=== PATIENT | male | born 1985 | race African-American/Black ===

== ENCOUNTER 2016-10-13 20:28 | Inpatient (IN) | payer MEDICAID ==
[~2016-10-13] VITALS: Ht 188 cm; Wt 101.9 kg
[~2016-10-13 20:28] MED LIST: TNFMISC
[2016-10-13] MEDS ORDERED: OLANZapine 5 MG RAPDIS TABLET PO PRN (20:45)
[2016-10-13] MEDS ORDERED: LORazepam 2 MG/ML VIAL IM ONE (20:45)
[2016-10-13] MEDS ORDERED: DiphenhydrAMINE HCL 50 MG/ML VIAL IM ONE (20:45)
[2016-10-13] MEDS ORDERED: HALOPERIDOL LACTATE 5 MG/ML VIAL IM ONE (20:45)
[2016-10-13] MEDS ORDERED: ZOLPIDEM TARTRATE 10 MG TABLET PO PRN (20:45)
[2016-10-13 20:58] VITALS: BP 151/90
[2016-10-13] MEDS ORDERED: INFLUENZA VIRUS VACCINE QVS 2016-17 (3YR+)/PF 60 MCG/0.5 ML SYRINGE IM ONE (21:15)
[2016-10-13] MEDS ORDERED: -PHARMACY VACCINE NOTE- MISC ONE ×2 (21:15)
[2016-10-13 21:45] VITALS: BP 131/66
[2016-10-13 22:44] VITALS: BP 131/66
[2016-10-14 07:24] VITALS: BP 135/62
[2016-10-14 08:23] VITALS: BP 149/76
[2016-10-14 08:59] LABS: BASOPHILS # (AUTO) 0.04 K/uL (0.00-0.20); BASOPHILS % (AUTO) 0.5 % (0.0-2.0); EOSINOPHILS # (AUTO) 0.32 K/uL (0.00-0.70); EOSINOPHILS % (AUTO) 4.24 % (1.0-6.0); HEMATOCRIT 39.4 % (41-53); HEMOGLOBIN 12.8 g/dL (13.5-17.5); LYMPHOCYTES # (AUTO) 1.8 K/uL (1.0-4.8); LYMPHOCYTES % (AUTO) 23.7 % (22.0-44.0); MEAN CORPUSCULAR HGB CONC 32.5 G/dL (31.0-37.0); MEAN CORPUSCULAR VOLUME 83 fL (80-100); MONOCYTES # (AUTO) 0.5 K/uL (0.1-1.0); NEUTROPHILS # (AUTO) 4.9 K/uL (1.8-7.7); NEUTROPHILS % (AUTO) 64.5 % (40.0-70.0); PLATELET COUNT (AUTO) 238 K/uL (150-450); RED BLOOD CELL COUNT(AUTO) 4.75 MIL/uL (4.50-5.90); RED CELL DISTRIBUTION WIDTH 15.1 % (11.5-14.5); WHITE BLOOD COUNT (AUTO) 7.5 K/uL (4.5-11.0)
[2016-10-14 09:06] LABS: HEMOGLOBIN A1C 5.9 % (4.5-6.2)
[2016-10-14 09:30] LABS: APPEARANCE,URINE CLEAR (CLEAR); GLUCOSE, URINE (UA) NEGATIVE (NEGATIVE); KETONES,URINE NEGATIVE (NEGATIVE); LEUKOCYTE ESTERASE ,URINE NEGATIVE (NEGATIVE); OCCULT BLOOD,URINE NEGATIVE (NEGATIVE); PROTEIN,URINE POS 1+ (NEGATIVE)
[2016-10-14 09:32] LABS: ADD UA MICROSCOPIC NO
[2016-10-14 09:40] LABS: ALANINE AMINOTRANSFERASE 23 U/L (12-78); ALBUMIN 3.3 g/dL (3.4-5.0); ANION GAP 6 mmol/L (8-16); ASPARTATE AMINOTRANSFERASE 20 U/L (15-37); BILIRUBIN,TOTAL 0.4 mg/dL (0.1-1.0); CALCIUM, TOTAL 8.9 mg/dL (8.8-10.5); CARBON DIOXIDE 33 mmol/L (22-29); CHLORIDE 107 mmol/L (98-107); CHOL/HDL RATIO 3.1 (4.2-7.3); CREATININE 0.74 mg/dL (0.60-1.30); GLOMERULAR FILTR. RATE CALC > 60 mL/min (>60); POTASSIUM 3.9 mmol/L (3.5-5.1); SODIUM SERUM 146 mmol/L (136-145); THYROID STIMULATING HORMONE 1.05 uIU/mL (0.36-3.74); TOTAL PROTEIN, SERUM 6.4 g/dL (6.4-8.2); UREA NITROGEN, BLOOD 11 mg/dL (7-18)
[2016-10-14] MEDS ORDERED: LORazepam 2 MG/ML VIAL ONE (11:26)
[2016-10-14] MEDS ORDERED: HALOPERIDOL LACTATE 5 MG/ML VIAL ONE (11:26)
[2016-10-14] MEDS ORDERED: DiphenhydrAMINE HCL 50 MG/ML VIAL ONE (11:26)
[2016-10-14] MEDS ORDERED: CloNIDine HCL 0.1 MG TABLET PO PRN (12:00)
[2016-10-14] MEDS ORDERED: PROMETHAZINE HCL 25 MG TABLET PO PRN (13:45)
[2016-10-14] MEDS ORDERED: TUBERCULIN, PURIFIED PROTEIN DERIVATIVE 5 TU/0.1 ML SYG ID ONE (13:45)
[2016-10-14] MEDS ORDERED: MAG HYDROX/AL HYDROX/SIMETH ES 30 ML SUSPENSION UDCUP PO PRN (13:45)
[2016-10-14] MEDS ORDERED: LOPERAMIDE HCL 2 MG CAPSULE PO PRN (13:45)
[2016-10-14] MEDS ORDERED: MAGNESIUM HYDROXIDE SUSPENSION 30 ML UDCUP PO PRN (13:45)
[2016-10-14] MEDS ORDERED: GuaiFENesin/D-METHORPHAN [SUGAR-FREE] 200-20MG/10 ML SYRUP UDCUP PO PRN (13:45)
[2016-10-14] MEDS ORDERED: HydrOXYzine PAMOATE 50 MG CAPSULE PO PRN (13:45)
[2016-10-14] MEDS ORDERED: ACETAMINOPHEN 325 MG TABLET PO PRN (13:45)
[2016-10-14 16:26] VITALS: BP 142/81
[2016-10-14] MEDS: THIAMINE HCL 100 MG TABLET PO SCH (17:33)
[2016-10-14] MEDS: OLANZapine 5 MG RAPDIS TABLET PO SCH (21:51)
[2016-10-15 06:53] VITALS: BP 137/82
[2016-10-15 08:43] VITALS: BP 121/81
[2016-10-15 09:11] LABS: CREATINE KINASE MB 1.5 ng/mL (0-5); CREATINE KINASE, TOTAL 289 U/L (39-308)
[2016-10-15] MEDS: FOLIC ACID 1 MG TABLET PO SCH (09:43)
[2016-10-15] MEDS: THIAMINE HCL 100 MG TABLET PO SCH ×2 (09:43→17:00)
[2016-10-15] MEDS: MULTIVITAMINS WITH MINERALS, THERAPEUTIC TABLET PO SCH (09:44)
[2016-10-15 16:00] VITALS: BP 138/88
[2016-10-15] MEDS: LORazepam 2 MG TABLET PO PRN (20:40)
[2016-10-15] MEDS: OLANZapine 5 MG RAPDIS TABLET PO SCH (20:40)
[2016-10-16 03:09] VITALS: BP 139/87
[2016-10-16] MEDS: LORazepam 2 MG TABLET PO PRN ×3 (03:12→14:19)
[2016-10-16 08:37] VITALS: BP 134/87
[2016-10-16] MEDS: FOLIC ACID 1 MG TABLET PO SCH (09:50)
[2016-10-16] MEDS: THIAMINE HCL 100 MG TABLET PO SCH ×2 (09:50→16:26)
[2016-10-16] MEDS: MULTIVITAMINS WITH MINERALS, THERAPEUTIC TABLET PO SCH (09:50)
[2016-10-16] MEDS ORDERED: OLAN5Z PO (13:26)
[2016-10-16 16:04] LABS: HEPATITIS Bs ANTIGEN SCREEN P Negative (Negative); HEPATITIS C AB SCREEN 0.1 s/co ratio (0.0-0.9)
[2016-10-17 07:06] LABS: CARCINOEMBRYONIC AG 3.7 ng/mL (0.0-4.7)
== END 2016-10-16 16:30 | disposition home or self-care (01) | DRG 750 ==
LOC: B3A 20:56 → EDSTATUS 20:59
PROVIDERS: ADMIT Psychiatry & Neurology Psychiatry; ATTEND Psychiatry & Neurology Psychiatry
DX: F20.0 Paranoid schizophrenia (principal); Z91.19 Patient's noncompliance with other medical treatment and regimen; I10 Essential (primary) hypertension; F12.90 Cannabis use, unspecified, uncomplicated; Z72.89 Other problems related to lifestyle; Z85.028 Personal history of other malignant neoplasm of stomach; D64.9 Anemia, unspecified; Z28.21 Immunization not carried out because of patient refusal
CPT/HCPCS: 80074; 80307; 82105; 82306; 82378; 82607; 82746; 83036; 84439; 84443; 86301; 86592; 87081; J1200; J1630; J2060

== ENCOUNTER 2017-11-24 09:30 | Inpatient (IN) | payer MEDICAID ==
[~2017-11-24] VITALS: Ht 185.4 cm; Wt 99.8 kg
[~2017-11-24 09:30] MED LIST changes: +OLAN5TAB40 PO; -TNFMISC
[2017-11-24 10:01] LABS: BASOPHILS % (AUTO) 0.4 % (0.0-2.0); EOSINOPHILS % (AUTO) 1.2 % (1.0-6.0); HEMATOCRIT 46.5 % (41-53); HEMOGLOBIN 15.1 g/dL (13.5-17.5); LYMPHOCYTES # (AUTO) 1.5 K/uL (1.0-4.8); MEAN CORPUSCULAR HEMOGLOBIN 26.1 pg (26.0-34.0); MEAN CORPUSCULAR HGB CONC 32.4 G/dL (31.0-37.0); MEAN CORPUSCULAR VOLUME 81 fL (80-100); MONOCYTES # (AUTO) 0.7 K/uL (0.1-1.0); MONOCYTES % (AUTO) 6.1 % (2.0-9.0); NEUTROPHILS # (AUTO) 9.4 K/uL (1.8-7.7); NEUTROPHILS % (AUTO) 79.3 % (40.0-70.0); PLATELET COUNT (AUTO) 231 K/uL (150-450); RED BLOOD CELL COUNT(AUTO) 5.77 MIL/uL (4.50-5.90); RED CELL DISTRIBUTION WIDTH 15.1 % (11.5-14.5)
[2017-11-24 10:12] LABS: ANION GAP 12 mmol/L (8-16); CALCIUM, TOTAL 9.3 mg/dL (8.8-10.5); CARBON DIOXIDE 25 mmol/L (22-29); CHLORIDE 102 mmol/L (98-107); GLOMERULAR FILTR. RATE CALC > 60 mL/min (>60); GLUCOSE,RANDOM 112 mg/dL (70-110); POTASSIUM 3.4 mmol/L (3.5-5.1); SODIUM SERUM 139 mmol/L (136-145); UREA NITROGEN, BLOOD 14 mg/dL (7-18)
[2017-11-24] MEDS ORDERED: LORazepam 2 MG/ML VIAL IM ONE (10:15)
[2017-11-24] MEDS ORDERED: HALOPERIDOL LACTATE 5 MG/ML VIAL IM ONE (10:15)
[2017-11-24] MEDS ORDERED: DiphenhydrAMINE HCL 50 MG/ML VIAL IM ONE (10:15)
[2017-11-24 10:17] LABS: ALANINE AMINOTRANSFERASE 33 U/L (12-78); ALBUMIN 4.1 g/dL (3.4-5.0); ALKALINE PHOSPHATASE 79 U/L (46-116); ASPARTATE AMINOTRANSFERASE 20 U/L (15-37); BILIRUBIN,TOTAL 1.7 mg/dL (0.1-1.0); TOTAL PROTEIN, SERUM 8.7 g/dL (6.4-8.2)
[2017-11-24] MEDS ORDERED: POTASSIUM CHLORIDE 20 MEQ ER TABLET PO ONE (10:45)
[2017-11-24] MEDS ORDERED: CloNIDine HCL 0.1 MG TABLET PO PRN (10:45)
[2017-11-25] MEDS: OLANZapine 5 MG RAPDIS TABLET PO SCH (09:45)
[2017-11-25 16:00] VITALS: BP 131/78
[2017-11-25] MEDS: HALOPERIDOL 5 MG TABLET PO PRN (16:34)
[2017-11-25] MEDS: LORazepam 2 MG TABLET PO PRN (16:34)
[2017-11-25] MEDS: OLANZapine 10 MG RAPDIS TABLET PO SCH (20:35)
[2017-11-25] MEDS: ZOLPIDEM TARTRATE 10 MG TABLET PO PRN (21:09)
[2017-11-26 07:44] LABS: ANION GAP 9 mmol/L (8-16); CALCIUM, TOTAL 9.3 mg/dL (8.8-10.5); CARBON DIOXIDE 27 mmol/L (22-29); CHLORIDE 104 mmol/L (98-107); CREATININE 0.92 mg/dL (0.60-1.30); GLOMERULAR FILTR. RATE CALC > 60 mL/min (>60); GLUCOSE,RANDOM 85 mg/dL (70-110); POTASSIUM 3.7 mmol/L (3.5-5.1); SODIUM SERUM 140 mmol/L (136-145); UREA NITROGEN, BLOOD 20 mg/dL (7-18)
[2017-11-26] MEDS: OLANZapine 5 MG RAPDIS TABLET PO SCH (08:48)
[2017-11-26] MEDS: HALOPERIDOL 5 MG TABLET PO PRN (15:46)
[2017-11-26] MEDS: LORazepam 2 MG TABLET PO PRN (15:46)
[2017-11-26 16:00] VITALS: BP 138/94
[2017-11-26] MEDS: OLANZapine 10 MG RAPDIS TABLET PO SCH (20:43)
[2017-11-27] MEDS: OLANZapine 5 MG RAPDIS TABLET PO SCH (09:00)
[2017-11-27] MEDS: OLANZapine 10 MG RAPDIS TABLET PO SCH ×2 (20:31→21:00)
[2017-11-28] MEDS ORDERED: OLANZapine 5 MG TABLET PO SCH (09:00)
[2017-11-28] MEDS: OLANZapine 10 MG RAPDIS TABLET PO SCH ×2 (09:00→20:24)
[2017-11-29] MEDS: OLANZapine 10 MG RAPDIS TABLET PO SCH ×3 (09:00→20:23)
[2017-11-30] MEDS: OLANZapine 10 MG RAPDIS TABLET PO SCH ×2 (09:00→20:31)
[2017-12-01] MEDS: OLANZapine 10 MG RAPDIS TABLET PO SCH ×2 (07:57→20:36)
[2017-12-02] MEDS ORDERED: LORazepam 2 MG/ML VIAL IM ONE (08:00)
[2017-12-02] MEDS ORDERED: DiphenhydrAMINE HCL 50 MG/ML VIAL IM ONE (08:00)
[2017-12-02] MEDS ORDERED: HALOPERIDOL LACTATE 5 MG/ML VIAL IM ONE (08:00)
[2017-12-02] MEDS: OLANZapine 10 MG RAPDIS TABLET PO SCH ×2 (09:00→20:41)
[2017-12-03] MEDS: OLANZapine 10 MG RAPDIS TABLET PO SCH ×2 (09:00→21:15)
[2017-12-03] MEDS ORDERED: HALOPERIDOL LACTATE 5 MG/ML VIAL IM PRN (13:45)
[2017-12-03] MEDS ORDERED: HEPATITIS A VACCINE, INACTI [ADULT] 1,440 UNITS/ML VIAL IM ONE (15:30)
[2017-12-04] MEDS: OLANZapine 10 MG RAPDIS TABLET PO SCH ×2 (09:00→21:33)
[2017-12-05] MEDS ORDERED: DiphenhydrAMINE HCL 50 MG/ML VIAL ONE (07:44)
[2017-12-05] MEDS ORDERED: LORazepam 2 MG/ML VIAL ONE (07:44)
[2017-12-05] MEDS ORDERED: DiphenhydrAMINE HCL 50 MG/ML VIAL IM ONE (07:45)
[2017-12-05] MEDS ORDERED: HALOPERIDOL LACTATE 5 MG/ML VIAL IM ONE (07:45)
[2017-12-05] MEDS ORDERED: LORazepam 2 MG/ML VIAL IM ONE (07:45)
[2017-12-05] MEDS: OLANZapine 10 MG RAPDIS TABLET PO SCH ×4 (07:56→21:20)
[2017-12-06] MEDS: OLANZapine 10 MG RAPDIS TABLET PO SCH ×2 (09:31→21:01)
[2017-12-07] MEDS: OLANZapine 10 MG RAPDIS TABLET PO SCH (09:54)
[2017-12-07] MEDS ORDERED: OLANZapine 7.5 MG TABLET PO ONE (21:00)
[2017-12-08] MEDS: OLANZapine 7.5 MG TABLET PO SCH ×2 (08:21→20:11)
[2017-12-09] MEDS: OLANZapine 7.5 MG TABLET PO SCH ×2 (08:49→21:22)
[2017-12-10] MEDS: OLANZapine 7.5 MG TABLET PO SCH ×2 (09:05→20:14)
[2017-12-11] MEDS: OLANZapine 7.5 MG TABLET PO SCH ×2 (09:14→20:13)
[2017-12-12] MEDS: ZOLPIDEM TARTRATE 10 MG TABLET PO PRN (00:07)
[2017-12-12] MEDS: LORazepam 2 MG TABLET PO PRN (00:08)
[2017-12-12] MEDS: HALOPERIDOL 5 MG TABLET PO PRN (01:17)
[2017-12-12] MEDS: OLANZapine 7.5 MG TABLET PO SCH ×2 (08:27→21:03)
[2017-12-13] MEDS: OLANZapine 7.5 MG TABLET PO SCH ×2 (12:16→20:46)
[2017-12-14] MEDS: OLANZapine 7.5 MG TABLET PO SCH ×2 (08:45→21:08)
[2017-12-15] MEDS: LORazepam 2 MG TABLET PO PRN ×2 (00:09→08:03)
[2017-12-15] MEDS: ZOLPIDEM TARTRATE 10 MG TABLET PO PRN (00:09)
[2017-12-15] MEDS ORDERED: DiphenhydrAMINE HCL 50 MG/ML VIAL IM ONE (07:30)
[2017-12-15] MEDS ORDERED: HALOPERIDOL LACTATE 5 MG/ML VIAL IM ONE (07:30)
[2017-12-15] MEDS ORDERED: LORazepam 2 MG/ML VIAL IM ONE (07:30)
[2017-12-15] MEDS: OLANZapine 7.5 MG TABLET PO SCH ×2 (08:03→21:24)
[2017-12-15] MEDS: HALOPERIDOL 5 MG TABLET PO PRN (08:04)
[2017-12-16] MEDS: OLANZapine 7.5 MG TABLET PO SCH ×2 (07:49→21:00)
[2017-12-16] MEDS ORDERED: DiphenhydrAMINE HCL 50 MG/ML VIAL IM ONE (17:30)
[2017-12-16] MEDS ORDERED: HALOPERIDOL LACTATE 5 MG/ML VIAL IM ONE (17:30)
[2017-12-16] MEDS ORDERED: LORazepam 2 MG/ML VIAL IM ONE (17:30)
[2017-12-16] MEDS ORDERED: LORazepam 2 MG/ML VIAL ONE (17:33)
[2017-12-16] MEDS ORDERED: DiphenhydrAMINE HCL 50 MG/ML VIAL ONE (17:34)
[2017-12-16] MEDS ORDERED: HALOPERIDOL LACTATE 5 MG/ML VIAL ONE (17:34)
[2017-12-17] MEDS: OLANZapine 7.5 MG TABLET PO SCH ×2 (09:31→22:06)
[2017-12-17] MEDS: LORazepam 2 MG TABLET PO PRN (09:32)
[2017-12-18] MEDS: OLANZapine 7.5 MG TABLET PO SCH (08:24)
[2017-12-18] MEDS: OLANZapine 5 MG RAPDIS TABLET PO SCH (23:07)
[2017-12-19] MEDS: OLANZapine 5 MG RAPDIS TABLET PO SCH ×2 (09:32→20:30)
[2017-12-19] MEDS: HALOPERIDOL LACTATE 5 MG/ML VIAL IM PRN (20:32)
[2017-12-20] MEDS: OLANZapine 5 MG RAPDIS TABLET PO SCH ×2 (07:34→21:00)
[2017-12-20] MEDS: HALOPERIDOL LACTATE 5 MG/ML VIAL IM PRN ×2 (08:01→21:13)
[2017-12-21] MEDS: OLANZapine 5 MG RAPDIS TABLET PO SCH ×2 (11:33→20:49)
[2017-12-22] MEDS: OLANZapine 5 MG RAPDIS TABLET PO SCH ×2 (08:06→20:52)
[2017-12-23] MEDS: OLANZapine 5 MG RAPDIS TABLET PO SCH ×2 (07:56→21:13)
[2017-12-24] MEDS: ZOLPIDEM TARTRATE 10 MG TABLET PO PRN (01:40)
[2017-12-24] MEDS: LORazepam 2 MG TABLET PO PRN (01:40)
[2017-12-24] MEDS: OLANZapine 5 MG RAPDIS TABLET PO SCH ×2 (11:56→21:00)
[2017-12-24] MEDS ORDERED: LORazepam 2 MG/ML VIAL IM ONE (17:30)
[2017-12-24] MEDS ORDERED: HALOPERIDOL LACTATE 5 MG/ML VIAL IM ONE (17:30)
[2017-12-24] MEDS ORDERED: DiphenhydrAMINE HCL 50 MG/ML VIAL IM ONE (17:30)
[2017-12-24] MEDS: DIVALPROEX SODIUM 500 MG DR TABLET PO SCH (21:00)
[2017-12-25] MEDS: DIVALPROEX SODIUM 500 MG DR TABLET PO SCH ×2 (08:37→20:12)
[2017-12-25] MEDS: OLANZapine 5 MG RAPDIS TABLET PO SCH ×2 (08:37→20:12)
[2017-12-26] MEDS: OLANZapine 5 MG RAPDIS TABLET PO SCH ×2 (08:28→21:00)
[2017-12-26] MEDS: DIVALPROEX SODIUM 500 MG DR TABLET PO SCH ×2 (08:28→21:00)
[2017-12-26] MEDS ORDERED: DiphenhydrAMINE HCL 50 MG/ML VIAL IM ONE (20:15)
[2017-12-26] MEDS ORDERED: HALOPERIDOL LACTATE 5 MG/ML VIAL IM ONE (20:15)
[2017-12-26] MEDS ORDERED: LORazepam 2 MG/ML VIAL IM ONE (20:15)
[2017-12-27] MEDS: DIVALPROEX SODIUM 500 MG DR TABLET PO SCH ×2 (09:00→22:54)
[2017-12-27] MEDS: OLANZapine 5 MG RAPDIS TABLET PO SCH ×2 (09:00→22:54)
[2017-12-28] MEDS: DIVALPROEX SODIUM 500 MG DR TABLET PO SCH ×2 (07:51→20:45)
[2017-12-28] MEDS: OLANZapine 5 MG RAPDIS TABLET PO SCH (07:51)
[2017-12-28] MEDS ORDERED: OLANZapine 10 MG TABLET PO SCH (21:00)
[2017-12-29] MEDS: OLANZapine 10 MG RAPDIS TABLET PO SCH ×3 (08:39→21:31)
[2017-12-29] MEDS: DIVALPROEX SODIUM 500 MG DR TABLET PO SCH ×3 (08:39→21:31)
[2017-12-29] MEDS: HALOPERIDOL LACTATE 5 MG/ML VIAL IM PRN (21:37)
[2017-12-30] MEDS: DIVALPROEX SODIUM 500 MG DR TABLET PO SCH ×2 (08:28→21:00)
[2017-12-30] MEDS: OLANZapine 10 MG RAPDIS TABLET PO SCH ×2 (08:28→21:00)
[2017-12-30] MEDS: HALOPERIDOL LACTATE 5 MG/ML VIAL IM PRN (22:08)
[2017-12-31] MEDS: DIVALPROEX SODIUM 500 MG DR TABLET PO SCH ×2 (08:10→21:03)
[2017-12-31] MEDS: OLANZapine 10 MG RAPDIS TABLET PO SCH ×2 (08:10→21:03)
[2018-01-01] MEDS: DIVALPROEX SODIUM 500 MG DR TABLET PO SCH ×2 (08:28→20:35)
[2018-01-01] MEDS: OLANZapine 10 MG RAPDIS TABLET PO SCH ×2 (08:28→20:35)
[2018-01-02] MEDS: DIVALPROEX SODIUM 500 MG DR TABLET PO SCH ×2 (08:31→21:35)
[2018-01-02] MEDS: OLANZapine 10 MG RAPDIS TABLET PO SCH ×2 (08:31→21:35)
[2018-01-03] MEDS: OLANZapine 10 MG RAPDIS TABLET PO SCH ×2 (07:52→21:36)
[2018-01-03] MEDS: DIVALPROEX SODIUM 500 MG DR TABLET PO SCH ×2 (07:52→21:35)
[2018-01-04] MEDS: OLANZapine 10 MG RAPDIS TABLET PO SCH ×2 (09:25→20:05)
[2018-01-04] MEDS: DIVALPROEX SODIUM 500 MG DR TABLET PO SCH ×2 (09:25→20:04)
[2018-01-05] MEDS: OLANZapine 10 MG RAPDIS TABLET PO SCH ×2 (08:59→21:33)
[2018-01-05] MEDS: DIVALPROEX SODIUM 500 MG DR TABLET PO SCH ×2 (08:59→21:33)
[2018-01-06] MEDS: DIVALPROEX SODIUM 500 MG DR TABLET PO SCH ×2 (08:54→21:23)
[2018-01-06] MEDS: OLANZapine 10 MG RAPDIS TABLET PO SCH ×2 (08:55→21:23)
[2018-01-07] MEDS: OLANZapine 10 MG RAPDIS TABLET PO SCH ×2 (08:06→20:39)
[2018-01-07] MEDS: DIVALPROEX SODIUM 500 MG DR TABLET PO SCH ×2 (08:06→20:39)
[2018-01-07] MEDS: HALOPERIDOL 5 MG TABLET PO PRN (21:36)
[2018-01-07] MEDS: LORazepam 2 MG TABLET PO PRN (21:36)
[2018-01-08] MEDS: DIVALPROEX SODIUM 500 MG DR TABLET PO SCH ×2 (09:49→20:36)
[2018-01-08] MEDS: OLANZapine 10 MG RAPDIS TABLET PO SCH ×2 (09:49→20:36)
[2018-01-09] MEDS: DIVALPROEX SODIUM 500 MG DR TABLET PO SCH ×2 (08:19→20:17)
[2018-01-09] MEDS: OLANZapine 10 MG RAPDIS TABLET PO SCH ×2 (08:20→20:17)
[2018-01-09] MEDS ORDERED: OLAN10TA6 PO (11:04)
[2018-01-09] MEDS ORDERED: DIVA500T35 PO (11:04)
[2018-01-10] MEDS: DIVALPROEX SODIUM 500 MG DR TABLET PO SCH (08:20)
[2018-01-10] MEDS: OLANZapine 10 MG RAPDIS TABLET PO SCH (08:20)
== END 2018-01-10 13:30 | disposition home or self-care (01) | DRG 750 ==
LOC: EMS 09:31 → 3EC 16:28
DX: F20.0 Paranoid schizophrenia (principal); Z78.1 Physical restraint status; E87.6 Hypokalemia; D64.9 Anemia, unspecified; D72.829 Elevated white blood cell count, unspecified; F12.90 Cannabis use, unspecified, uncomplicated; R03.0 Elevated blood-pressure reading, without diagnosis of hypertension; Z59.0 Homelessness; Z79.899 Other long term (current) drug therapy; Z87.891 Personal history of nicotine dependence; Z28.21 Immunization not carried out because of patient refusal
CPT/HCPCS: 90632; 96372; 99291; G0480; J1200; J1630; J2060

== ENCOUNTER 2018-08-31 14:47 | Inpatient (IN) | payer MEDICAID ==
[~2018-08-31] VITALS: Ht 185.4 cm; Wt 94.5 kg
[~2018-08-31 14:47] MED LIST changes: +DIVA-78 PO; +OLAN10TA6 PO; -OLAN5TAB40 PO
[2018-08-31 15:40] LABS: APPEARANCE,URINE CLEAR (CLEAR); BILIRUBIN,URINE NEGATIVE (NEGATIVE); GLUCOSE, URINE (UA) >=1000 mg/dL (NEGATIVE); KETONES,URINE 40 mg/dL (NEGATIVE); LEUKOCYTE ESTERASE ,URINE NEGATIVE (NEGATIVE); NITRATE,URINE NEGATIVE (NEGATIVE); OCCULT BLOOD,URINE NEGATIVE (NEGATIVE); PROTEIN,URINE NEGATIVE (NEGATIVE); UROBILINOGEN,URINE 0.2 mg/dL (<=1.0)
[2018-08-31 15:44] LABS: GLUCOSE,POINT OF CARE > 600 MG/DL (70-110)
[2018-08-31] MEDS ORDERED: INSULIN REGULAR, HUMAN 100 UNITS/ML IVP ONE ×2 (15:45→17:30)
[2018-08-31] MEDS ORDERED: SODIUM CHLORIDE 0.9% 2,000 ML IV ONE (15:45)
[2018-08-31 15:46] LABS: AMPHET/METH SCREEN,URINE NEGATIVE (NEGATIVE); BARBITURATE SCREEN, URINE NEGATIVE (NEGATIVE); BENZODIAZEPINES SCREEN,URINE NEGATIVE (NEGATIVE); CANNABINOID SCREEN,URINE NEGATIVE (NEGATIVE); COCAINE SCREEN,URINE NEGATIVE (NEGATIVE); METHADONE SCREEN, URINE NEGATIVE (NEGATIVE); OPIATE SCREEN,URINE NEGATIVE (NEGATIVE)
[2018-08-31 15:48] LABS: PHENCYCLIDINE SCREEN,URINE NEGATIVE (NEGATIVE)
[2018-08-31 15:49] LABS: BACTERIA,URINE Rare /HPF (None Seen); RBC,URINE None Seen /HPF (0-2); SQUAMOUS EPITHELIAL CELL,UR Rare /LPF (None Seen); WBC,URINE None Seen /HPF (0-5)
[2018-08-31 15:53] LABS: BASOPHILS % (AUTO) 0.6 % (0.0-2.0); EOSINOPHILS % (AUTO) 0.1 % (1.0-6.0); HEMATOCRIT 48.7 % (41-53); HEMOGLOBIN 15.8 g/dL (13.5-17.5); LYMPHOCYTES # (AUTO) 1.8 K/uL (1.0-4.8); LYMPHOCYTES % (AUTO) 11.8 % (22.0-44.0); MEAN CORPUSCULAR HEMOGLOBIN 27.6 pg (26.0-34.0); MEAN CORPUSCULAR HGB CONC 32.5 G/dL (31.0-37.0); MEAN CORPUSCULAR VOLUME 85 fL (80-100); MONOCYTES # (AUTO) 1.1 K/uL (0.1-1.0); MONOCYTES % (AUTO) 7.1 % (2.0-9.0); NEUTROPHILS # (AUTO) 12.4 K/uL (1.8-7.7); NEUTROPHILS % (AUTO) 80.4 % (40.0-70.0); PLATELET COUNT (AUTO) 388 K/uL (150-450); RED BLOOD CELL COUNT(AUTO) 5.74 MIL/uL (4.50-5.90)
[2018-08-31 16:07] LABS: HEMOGLOBIN A1C 10.6 % (4.5-6.2)
[2018-08-31 16:09] LABS: ALANINE AMINOTRANSFERASE 27 U/L (12-78); ALBUMIN 3.7 g/dL (3.4-5.0); ALKALINE PHOSPHATASE 104 U/L (46-116); ANION GAP 19 mmol/L (8-16); ASPARTATE AMINOTRANSFERASE 14 U/L (15-37); BILIRUBIN,TOTAL 0.7 mg/dL (0.1-1.0); CALCIUM, TOTAL 9.9 mg/dL (8.8-10.5); CARBON DIOXIDE 22 mmol/L (22-29); CHLORIDE 83 mmol/L (98-107); CREATININE 1.45 mg/dL (0.60-1.30); GLOMERULAR FILTR. RATE CALC > 60 mL/min (>60); POTASSIUM 5.4 mmol/L (3.5-5.1); TOTAL PROTEIN, SERUM 9.3 g/dL (6.4-8.2); UREA NITROGEN, BLOOD 31 mg/dL (7-18); VALPROIC ACID 77 mcg/mL (50-100)
[2018-08-31 16:15] LABS: SODIUM SERUM 124 mmol/L (136-145)
[2018-08-31] MEDS ORDERED: SODIUM CHLORIDE 0.9% 1,000 ML IV ONE (16:15)
[2018-08-31 16:16] LABS: GLUCOSE,RANDOM 658 mg/dL (70-110)
[2018-08-31 16:25] LABS: B-TYPE NATRIURETIC PEPTIDE < 5 pg/mL (0-100)
[2018-08-31 16:29] LABS: PLATELET MORPHOLOGY COMMENT NORMAL
[2018-08-31 16:39] LABS: ACETAMINOPHEN < 2 mcg/mL (10-30)
[2018-08-31 16:43] LABS: ABG BASE EXCESS -7.4 mmol/L (-2.0-3.0); ABG CARBOXYHEMOGLOBIN 1.2 % (0.0-1.5); ABG HCO3 19.5 mmol/L (22.0-26.0); ABG METHEMOGLOBIN 0.3 % (0.0-1.5); ABG OXYGEN CONTENT 21.1 mL/dL (15.0-23.0); ABG OXYGEN SATURATION 96.6 % (95.0-98.0); ABG OXYHEMOGLOBIN 95.2 % (94.0-100.0); ABG PCO2 32 mmHg (35-45); ABG PH 7.369 (7.350-7.450); ABG TOTAL HEMOGLOBIN 15.7 G/dL (12.0-18.0); PO2, ARTERIAL BG 91.7 mmHg (92.0-100.0); SITE, BLOOD GAS RT RADIAL; SOURCE, BLOOD GAS ARTERIAL; TEMPERATURE, FAHRENHEIT, BG 98.5 FAHREN (96.0-98.6)
[2018-08-31 17:19] LABS: GLUCOSE,POINT OF CARE 536 MG/DL (70-110)
[2018-08-31 18:52] LABS: GLUCOSE,POINT OF CARE 442 MG/DL (70-110)
[2018-08-31 19:13] LABS: ANION GAP 12 mmol/L (8-16); CALCIUM, TOTAL 8.9 mg/dL (8.8-10.5); CARBON DIOXIDE 26 mmol/L (22-29); CHLORIDE 95 mmol/L (98-107); CREATININE 1.32 mg/dL (0.60-1.30); GLOMERULAR FILTR. RATE CALC > 60 mL/min (>60); POTASSIUM 4.3 mmol/L (3.5-5.1); SODIUM SERUM 133 mmol/L (136-145); UREA NITROGEN, BLOOD 27 mg/dL (7-18)
[2018-08-31 19:18] LABS: GLUCOSE,RANDOM 426 mg/dL (70-110)
[2018-08-31 19:38] LABS: GLUCOSE,POINT OF CARE 419 MG/DL (70-110)
[2018-08-31] MEDS ORDERED: ACETAMINOPHEN 325 MG TABLET PO PRN ×2 (21:00→23:45)
[2018-08-31] MEDS ORDERED: 0.9% SODIUM CHLORIDE 10 ML SYRINGE IVP PRN (21:00)
[2018-08-31] MEDS ORDERED: ONDANSETRON HCL 4 MG/2 ML VIAL IVP PRN ×2 (21:00→23:45)
[2018-08-31 22:00] VITALS: BP 115/57
[2018-08-31] MEDS ORDERED: INSULIN GLARGINE,HUM.REC.ANLOG 100 UNITS/ML SQ SCH (22:45)
[2018-08-31] MEDS ORDERED: DEXTROSE 50%-WATER 25 GM/50 ML SYRINGE IVP PRN (22:45)
[2018-08-31] MEDS ORDERED: INSULIN LISPRO 100 UNITS/ML SQ ONE (23:00)
[2018-08-31 23:07] LABS: GLUCOMETER DEV NAME(LOC) 6N.2; GLUCOSE,POINT OF CARE 432 MG/DL (70-110)
[2018-08-31] MEDS: INSULIN LISPRO 100 UNITS/ML SQ PRN (23:14)
[2018-08-31] MEDS: SODIUM CHLORIDE 0.9% 1,000 ML IV SCH (23:14)
[2018-08-31] MEDS ORDERED: MORPHINE SULFATE 4 MG/ML SYRINGE IVP PRN (23:45)
[2018-08-31] MEDS ORDERED: HYDROCODONE/ACETAMINOPHEN 5-325 MG TABLET PO PRN (23:45)
[2018-08-31] MEDS ORDERED: BISACODYL 10 MG RECTAL RECTAL SUPPOSITORY PR PRN (23:45)
[2018-08-31] MEDS ORDERED: ZOLPIDEM TARTRATE 5 MG TABLET PO PRN (23:45)
[2018-08-31] MEDS ORDERED: MAGNESIUM HYDROXIDE SUSPENSION 30 ML UDCUP PO PRN (23:45)
[2018-09-01] MEDS ORDERED: -PHARMACY VACCINE NOTE- MISC ONE (02:30)
[2018-09-01 03:30] VITALS: BP 121/62
[2018-09-01] MEDS: INSULIN LISPRO 100 UNITS/ML SQ PRN ×4 (05:32→20:38)
[2018-09-01] MEDS ORDERED: INSULIN LISPRO 100 UNITS/ML SQ ONE ×2 (06:30→11:30)
[2018-09-01 06:59] LABS: GLUCOMETER DEV NAME(LOC) 6N.2; GLUCOSE,POINT OF CARE 415 MG/DL (70-110)
[2018-09-01] MEDS: HEPARIN SODIUM,PORCINE 5,000 UNITS/ML VIAL SQ SCH ×3 (08:00→15:05)
[2018-09-01 08:08] VITALS: BP 121/79
[2018-09-01] MEDS: PANTOPRAZOLE SODIUM 40 MG DR TABLET PO SCH (08:12)
[2018-09-01] MEDS: DOCUSATE SODIUM 100 MG CAPSULE PO SCH ×2 (08:12→20:39)
[2018-09-01 08:24] LABS: GLUCOMETER DEV NAME(LOC) 6N.1; GLUCOSE,POINT OF CARE 295 MG/DL (70-110)
[2018-09-01] MEDS ORDERED: INSULIN GLARGINE,HUM.REC.ANLOG 100 UNITS/ML SQ SCH (09:00)
[2018-09-01 11:30] VITALS: BP 138/84
[2018-09-01] MEDS ORDERED: INSULIN GLARGINE,HUM.REC.ANLOG 100 UNITS/ML SQ ONE (11:30)
[2018-09-01] MEDS: SODIUM CHLORIDE 0.9% 1,000 ML IV SCH (11:48)
[2018-09-01 12:35] LABS: GLUCOMETER DEV NAME(LOC) 6N.2; GLUCOSE,POINT OF CARE 415 MG/DL (70-110)
[2018-09-01 15:47] VITALS: BP 120/89
[2018-09-01 17:30] LABS: GLUCOMETER DEV NAME(LOC) 6N.1; GLUCOSE,POINT OF CARE 453 MG/DL (70-110)
[2018-09-01] MEDS: INSULIN GLARGINE,HUM.REC.ANLOG 100 UNITS/ML SQ SCH (20:37)
[2018-09-01 21:07] VITALS: BP 138/86
[2018-09-01 22:04] LABS: GLUCOMETER DEV NAME(LOC) 6N.2; GLUCOSE,POINT OF CARE 421 MG/DL (70-110)
[2018-09-01 22:05] LABS: GLUCOMETER DEV NAME(LOC) 6N.2; GLUCOSE,POINT OF CARE 325 MG/DL (70-110)
[2018-09-02] VITALS (7 sets, daily range): BP systolic 123–147; BP diastolic 54–95
[2018-09-02] MEDS: INSULIN LISPRO 100 UNITS/ML SQ PRN ×4 (06:25→21:09)
[2018-09-02 06:49] LABS: GLUCOMETER DEV NAME(LOC) 6N.2; GLUCOSE,POINT OF CARE 286 MG/DL (70-110)
[2018-09-02] MEDS: HEPARIN SODIUM,PORCINE 5,000 UNITS/ML VIAL SQ SCH ×3 (08:00→16:00)
[2018-09-02] MEDS: DOCUSATE SODIUM 100 MG CAPSULE PO SCH ×2 (08:50→21:03)
[2018-09-02] MEDS: PANTOPRAZOLE SODIUM 40 MG DR TABLET PO SCH (08:50)
[2018-09-02] MEDS: INSULIN GLARGINE,HUM.REC.ANLOG 100 UNITS/ML SQ SCH ×2 (08:50→21:08)
[2018-09-02] MEDS: SODIUM CHLORIDE 0.9% 1,000 ML IV SCH (08:51)
[2018-09-02 12:44] LABS: GLUCOMETER DEV NAME(LOC) 6N.2; GLUCOSE,POINT OF CARE 267 MG/DL (70-110)
[2018-09-02] MEDS: OLANZapine 10 MG RAPDIS TABLET PO SCH ×2 (13:51→21:04)
[2018-09-02] MEDS: DIVALPROEX SODIUM 500 MG ER TABLET PO SCH ×2 (13:51→21:03)
[2018-09-02 18:59] LABS: GLUCOMETER DEV NAME(LOC) 6N.1; GLUCOSE,POINT OF CARE 406 MG/DL (70-110)
[2018-09-02 22:44] LABS: GLUCOMETER DEV NAME(LOC) 6N.2; GLUCOSE,POINT OF CARE 301 MG/DL (70-110)
[2018-09-03] VITALS: BP 130/76
[2018-09-03 04:00] VITALS: BP 139/78
[2018-09-03] MEDS: SODIUM CHLORIDE 0.9% 1,000 ML IV SCH ×2 (04:28→17:40)
[2018-09-03] MEDS: INSULIN LISPRO 100 UNITS/ML SQ PRN ×4 (05:26→20:59)
[2018-09-03 06:19] LABS: BASOPHILS % (AUTO) 0.6 % (0.0-2.0); EOSINOPHILS % (AUTO) 2.5 % (1.0-6.0); HEMATOCRIT 39.8 % (41-53); HEMOGLOBIN 13.1 g/dL (13.5-17.5); LYMPHOCYTES # (AUTO) 2.2 K/uL (1.0-4.8); LYMPHOCYTES % (AUTO) 33.7 % (22.0-44.0); MEAN CORPUSCULAR HEMOGLOBIN 27.8 pg (26.0-34.0); MEAN CORPUSCULAR HGB CONC 32.8 G/dL (31.0-37.0); MEAN CORPUSCULAR VOLUME 85 fL (80-100); MONOCYTES # (AUTO) 0.8 K/uL (0.1-1.0); MONOCYTES % (AUTO) 11.5 % (2.0-9.0); NEUTROPHILS # (AUTO) 3.4 K/uL (1.8-7.7); NEUTROPHILS % (AUTO) 51.7 % (40.0-70.0); PLATELET COUNT (AUTO) 217 K/uL (150-450); RED BLOOD CELL COUNT(AUTO) 4.69 MIL/uL (4.50-5.90); RED CELL DISTRIBUTION WIDTH 14.3 % (11.5-14.5)
[2018-09-03 06:37] LABS: ANION GAP 5 mmol/L (8-16); CALCIUM, TOTAL 8.4 mg/dL (8.8-10.5); CARBON DIOXIDE 30 mmol/L (22-29); CHLORIDE 102 mmol/L (98-107); CREATININE 0.71 mg/dL (0.60-1.30); GLOMERULAR FILTR. RATE CALC > 60 mL/min (>60); GLUCOSE,RANDOM 260 mg/dL (70-110); POTASSIUM 3.9 mmol/L (3.5-5.1); SODIUM SERUM 137 mmol/L (136-145); UREA NITROGEN, BLOOD 14 mg/dL (7-18)
[2018-09-03] MEDS: HEPARIN SODIUM,PORCINE 5,000 UNITS/ML VIAL SQ SCH ×3 (08:00→16:00)
[2018-09-03 08:09] VITALS: BP 127/75
[2018-09-03] MEDS: DIVALPROEX SODIUM 500 MG ER TABLET PO SCH ×2 (08:28→19:47)
[2018-09-03] MEDS: OLANZapine 10 MG RAPDIS TABLET PO SCH ×2 (08:28→19:47)
[2018-09-03] MEDS: PANTOPRAZOLE SODIUM 40 MG DR TABLET PO SCH (08:28)
[2018-09-03] MEDS: DOCUSATE SODIUM 100 MG CAPSULE PO SCH ×2 (08:28→19:47)
[2018-09-03] MEDS: INSULIN GLARGINE,HUM.REC.ANLOG 100 UNITS/ML SQ SCH ×2 (08:31→20:59)
[2018-09-03 10:56] VITALS: BP 124/76
[2018-09-03] MEDS ORDERED: MAGNESIUM OXIDE 400 MG TABLET PO ONE ×2 (14:30→20:00)
[2018-09-03 14:44] LABS: GLUCOMETER DEV NAME(LOC) 6N.1; GLUCOSE,POINT OF CARE 257 MG/DL (70-110)
[2018-09-03 14:45] LABS: GLUCOMETER DEV NAME(LOC) 6N.2; GLUCOSE,POINT OF CARE 315 MG/DL (70-110)
[2018-09-03 15:40] VITALS: BP 122/74
[2018-09-03 17:55] LABS: GLUCOMETER DEV NAME(LOC) 6N.2; GLUCOSE,POINT OF CARE 195 MG/DL (70-110)
[2018-09-03 20:22] VITALS: BP 114/69
[2018-09-03 23:50] LABS: GLUCOMETER DEV NAME(LOC) 6N.1; GLUCOSE,POINT OF CARE 347 MG/DL (70-110)
[2018-09-04] MEDS: HEPARIN SODIUM,PORCINE 5,000 UNITS/ML VIAL SQ SCH ×4 (00:16→23:28)
[2018-09-04 00:21] VITALS: BP 106/74
[2018-09-04 04:11] VITALS: BP 123/69
[2018-09-04] MEDS: INSULIN LISPRO 100 UNITS/ML SQ PRN ×4 (05:58→20:19)
[2018-09-04 06:24] LABS: GLUCOMETER DEV NAME(LOC) 6N.2; GLUCOSE,POINT OF CARE 203 MG/DL (70-110)
[2018-09-04] MEDS: SODIUM CHLORIDE 0.9% 1,000 ML IV SCH (07:00)
[2018-09-04 07:39] LABS: ALANINE AMINOTRANSFERASE 23 U/L (12-78); ALBUMIN 2.5 g/dL (3.4-5.0); ALKALINE PHOSPHATASE 54 U/L (46-116); ANION GAP 6 mmol/L (8-16); ASPARTATE AMINOTRANSFERASE 15 U/L (15-37); BILIRUBIN,TOTAL 0.6 mg/dL (0.1-1.0); CALCIUM, TOTAL 8.6 mg/dL (8.8-10.5); CARBON DIOXIDE 28 mmol/L (22-29); CHLORIDE 105 mmol/L (98-107); CREATININE 0.65 mg/dL (0.60-1.30); GLOMERULAR FILTR. RATE CALC > 60 mL/min (>60); GLUCOSE,RANDOM 178 mg/dL (70-110); POTASSIUM 3.9 mmol/L (3.5-5.1); SODIUM SERUM 139 mmol/L (136-145); TOTAL PROTEIN, SERUM 6.5 g/dL (6.4-8.2); UREA NITROGEN, BLOOD 16 mg/dL (7-18)
[2018-09-04 07:51] VITALS: BP 126/74
[2018-09-04] MEDS: OLANZapine 10 MG RAPDIS TABLET PO SCH ×2 (08:36→20:15)
[2018-09-04] MEDS: DOCUSATE SODIUM 100 MG CAPSULE PO SCH ×2 (08:36→20:15)
[2018-09-04] MEDS: DIVALPROEX SODIUM 500 MG ER TABLET PO SCH ×2 (08:36→20:15)
[2018-09-04] MEDS: PANTOPRAZOLE SODIUM 40 MG DR TABLET PO SCH (08:36)
[2018-09-04] MEDS: INSULIN GLARGINE,HUM.REC.ANLOG 100 UNITS/ML SQ SCH ×2 (08:50→20:20)
[2018-09-04 11:27] VITALS: BP 128/78
[2018-09-04 12:20] LABS: GLUCOMETER DEV NAME(LOC) 6N.2; GLUCOSE,POINT OF CARE 209 MG/DL (70-110)
[2018-09-04 15:30] VITALS: BP 124/76
[2018-09-04 18:10] LABS: GLUCOMETER DEV NAME(LOC) 6N.1; GLUCOSE,POINT OF CARE 351 MG/DL (70-110)
[2018-09-04 19:56] VITALS: BP 108/66
[2018-09-04 20:39] LABS: GLUCOMETER DEV NAME(LOC) 6N.1; GLUCOSE,POINT OF CARE 168 MG/DL (70-110)
[2018-09-04 22:34] LABS: GLUCOMETER DEV NAME(LOC) 6N.2; GLUCOSE,POINT OF CARE 104 MG/DL (70-110)
[2018-09-05] VITALS (7 sets, daily range): BP systolic 98–117; BP diastolic 54–72
[2018-09-05] MEDS: INSULIN LISPRO 100 UNITS/ML SQ PRN ×4 (06:11→20:14)
[2018-09-05 06:22] LABS: ANION GAP 1 mmol/L (8-16); CALCIUM, TOTAL 8.7 mg/dL (8.8-10.5); CARBON DIOXIDE 33 mmol/L (22-29); CHLORIDE 102 mmol/L (98-107); CREATININE 0.86 mg/dL (0.60-1.30); GLOMERULAR FILTR. RATE CALC > 60 mL/min (>60); GLUCOSE,RANDOM 271 mg/dL (70-110); POTASSIUM 4.7 mmol/L (3.5-5.1); SODIUM SERUM 136 mmol/L (136-145); UREA NITROGEN, BLOOD 18 mg/dL (7-18)
[2018-09-05 06:29] LABS: GLUCOMETER DEV NAME(LOC) 6N.2; GLUCOSE,POINT OF CARE 289 MG/DL (70-110)
[2018-09-05] MEDS: HEPARIN SODIUM,PORCINE 5,000 UNITS/ML VIAL SQ SCH ×2 (08:14→15:33)
[2018-09-05] MEDS: PANTOPRAZOLE SODIUM 40 MG DR TABLET PO SCH (08:15)
[2018-09-05] MEDS: DOCUSATE SODIUM 100 MG CAPSULE PO SCH ×2 (08:15→20:09)
[2018-09-05] MEDS: DIVALPROEX SODIUM 500 MG ER TABLET PO SCH ×2 (08:15→20:08)
[2018-09-05] MEDS: OLANZapine 10 MG RAPDIS TABLET PO SCH ×2 (08:15→20:08)
[2018-09-05 08:20] LABS: BASOPHILS % (AUTO) 0.5 % (0.0-2.0); EOSINOPHILS % (AUTO) 2.2 % (1.0-6.0); HEMATOCRIT 36.4 % (41-53); HEMOGLOBIN 12.1 g/dL (13.5-17.5); LYMPHOCYTES # (AUTO) 2.8 K/uL (1.0-4.8); LYMPHOCYTES % (AUTO) 34.7 % (22.0-44.0); MEAN CORPUSCULAR HEMOGLOBIN 28.1 pg (26.0-34.0); MEAN CORPUSCULAR HGB CONC 33.2 G/dL (31.0-37.0); MEAN CORPUSCULAR VOLUME 85 fL (80-100); MONOCYTES # (AUTO) 0.9 K/uL (0.1-1.0); MONOCYTES % (AUTO) 10.8 % (2.0-9.0); NEUTROPHILS # (AUTO) 4.2 K/uL (1.8-7.7); NEUTROPHILS % (AUTO) 51.8 % (40.0-70.0); RED BLOOD CELL COUNT(AUTO) 4.31 MIL/uL (4.50-5.90); RED CELL DISTRIBUTION WIDTH 14.1 % (11.5-14.5)
[2018-09-05] MEDS: INSULIN GLARGINE,HUM.REC.ANLOG 100 UNITS/ML SQ SCH ×2 (08:22→20:13)
[2018-09-05 08:25] LABS: PLATELET COUNT (AUTO) 207 K/uL (150-450)
[2018-09-05] MEDS: SODIUM CHLORIDE 0.9% 1,000 ML IV SCH (09:40)
[2018-09-05] MEDS ORDERED: MAGNESIUM SULFATE 2 GM/WATER 50 ML IV PRN (12:15)
[2018-09-05] MEDS ORDERED: MAGNESIUM SULFATE 4 GM/WATER 100 ML IV PRN (12:15)
[2018-09-05] MEDS: MAGNESIUM OXIDE 400 MG TABLET PO PRN ×3 (13:28→20:08)
[2018-09-05 14:29] LABS: GLUCOMETER DEV NAME(LOC) 6N.1; GLUCOSE,POINT OF CARE 223 MG/DL (70-110)
[2018-09-05 14:29] LABS: GLUCOMETER DEV NAME(LOC) 6N.1; GLUCOSE,POINT OF CARE 286 MG/DL (70-110)
[2018-09-05 18:36] LABS: GLUCOMETER DEV NAME(LOC) 6N.1; GLUCOSE,POINT OF CARE 231 MG/DL (70-110)
[2018-09-05 20:30] LABS: GLUCOMETER DEV NAME(LOC) 6N.2; GLUCOSE,POINT OF CARE 256 MG/DL (70-110)
[2018-09-06 04:00] VITALS: BP 109/68
[2018-09-06] MEDS: INSULIN LISPRO 100 UNITS/ML SQ PRN ×4 (05:56→20:58)
[2018-09-06 06:05] LABS: GLUCOMETER DEV NAME(LOC) 6N.2; GLUCOSE,POINT OF CARE 150 MG/DL (70-110)
[2018-09-06 08:08] VITALS: BP 112/78
[2018-09-06] MEDS: DOCUSATE SODIUM 100 MG CAPSULE PO SCH ×2 (09:25→20:57)
[2018-09-06] MEDS: HEPARIN SODIUM,PORCINE 5,000 UNITS/ML VIAL SQ SCH ×4 (09:25→23:33)
[2018-09-06] MEDS: DIVALPROEX SODIUM 500 MG ER TABLET PO SCH ×2 (09:25→20:57)
[2018-09-06] MEDS: PANTOPRAZOLE SODIUM 40 MG DR TABLET PO SCH (09:25)
[2018-09-06] MEDS: OLANZapine 10 MG RAPDIS TABLET PO SCH ×2 (09:25→20:57)
[2018-09-06] MEDS: INSULIN GLARGINE,HUM.REC.ANLOG 100 UNITS/ML SQ SCH ×2 (09:26→20:58)
[2018-09-06 12:08] VITALS: BP 130/67
[2018-09-06 13:44] LABS: GLUCOMETER DEV NAME(LOC) 6N.2; GLUCOSE,POINT OF CARE 309 MG/DL (70-110)
[2018-09-06 16:15] VITALS: BP 117/73
[2018-09-06 18:04] LABS: GLUCOMETER DEV NAME(LOC) 6N.1; GLUCOSE,POINT OF CARE 136 MG/DL (70-110)
[2018-09-06 20:03] VITALS: BP 115/70
[2018-09-06 22:30] LABS: GLUCOMETER DEV NAME(LOC) 6N.2; GLUCOSE,POINT OF CARE 277 MG/DL (70-110)
[2018-09-07 00:01] VITALS: BP 101/54
[2018-09-07 04:03] VITALS: BP 107/57
[2018-09-07] MEDS: INSULIN LISPRO 100 UNITS/ML SQ PRN ×4 (05:28→20:59)
[2018-09-07 06:45] LABS: GLUCOMETER DEV NAME(LOC) 6N.1; GLUCOSE,POINT OF CARE 135 MG/DL (70-110)
[2018-09-07] MEDS: DIVALPROEX SODIUM 500 MG ER TABLET PO SCH ×2 (08:00→20:57)
[2018-09-07] MEDS: OLANZapine 10 MG RAPDIS TABLET PO SCH ×2 (08:00→20:57)
[2018-09-07] MEDS: DOCUSATE SODIUM 100 MG CAPSULE PO SCH ×2 (08:00→20:56)
[2018-09-07] MEDS: HEPARIN SODIUM,PORCINE 5,000 UNITS/ML VIAL SQ SCH ×2 (08:00→16:34)
[2018-09-07] MEDS: PANTOPRAZOLE SODIUM 40 MG DR TABLET PO SCH (08:00)
[2018-09-07] MEDS: INSULIN GLARGINE,HUM.REC.ANLOG 100 UNITS/ML SQ SCH ×2 (08:03→20:59)
[2018-09-07 08:08] VITALS: BP 110/62
[2018-09-07 12:15] VITALS: BP 117/58
[2018-09-07 12:34] LABS: GLUCOMETER DEV NAME(LOC) 6N.2; GLUCOSE,POINT OF CARE 192 MG/DL (70-110)
[2018-09-07 16:10] VITALS: BP 99/62
[2018-09-07] MEDS ORDERED: INSLAN SQ (17:03)
[2018-09-07 19:23] LABS: GLUCOMETER DEV NAME(LOC) 6N.1; GLUCOSE,POINT OF CARE 188 MG/DL (70-110)
[2018-09-07 20:55] VITALS: BP 101/65
[2018-09-07 22:07] LABS: GLUCOMETER DEV NAME(LOC) 6N.2; GLUCOSE,POINT OF CARE 248 MG/DL (70-110)
== END 2018-09-07 21:50 | disposition home or self-care (01) | DRG 52 ==
LOC: EMS 14:48 → 6N 20:30 → UNDODISIN 09-07 18:30
PROVIDERS: ADMIT Internal Medicine; ATTEND Internal Medicine
DX: G92 Toxic encephalopathy (principal); E11.01 Type 2 diabetes mellitus with hyperosmolarity with coma; E11.69 Type 2 diabetes mellitus with other specified complication; R65.10 Systemic inflammatory response syndrome (SIRS) of non-infectious origin without acute organ dysfunction; F20.9 Schizophrenia, unspecified; Z87.891 Personal history of nicotine dependence; Z23 Encounter for immunization
CPT/HCPCS: 36600; 70450; 82805; 83036; 83735; 90686; 93005; 96361; 96374; 96376; 97161; 97165; 97530; 99291; G0378; G0480; G0481; J1644; J1815; J7030